=== PATIENT | male | born 1940 | race Caucasian/White ===

== ENCOUNTER 2016-10-16 10:18 | Day surgery (SDC) | payer MEDICARE ==
[2016-10-12 14:15] VITALS: BMI 45.1
[~2016-10-16 10:18] MED LIST: ceFAZolin 1,000 MG in SODIUM CHLORIDE 0.9% IRRIGATIO 250 ML IRRIGATION ONE; ceFAZolin 2 GM in SODIUM CHLORIDE 0.9% 100 ML IVPB ONE
[2016-10-16] MEDS: SODIUM CHLORIDE 0.9% 1,000 ML IV SCH (10:56)
[2016-10-16 10:59] LABS: Glucose,Whole Blood 128 mg/dL (75-99)
[2016-10-16 11:06] LABS: Basophils # (A) 0.1 k/uL (0-0.2); Basophils % (A) 1 %; CH 33.7; CHCM 35.1; Eosinophils # (A) 0.1 k/uL (0-0.7); Eosinophils % (A) 1 %; HDW 2.65; HGB 15.4 gm/dL (13.0-17.5); Luc # (Auto) 0.16; Luc % (Auto) 2; Lymphocytes # (A) 1.6 k/uL (1.0-4.8); Lymphocytes % (A) 17 %; MCH 32.2 pg (25.0-35.0); MCHC 33.4 g/dL (31.0-37.0); MCV 96.5 fL (80.0-100.0); Mean Platelet Volume 7.5; Monocytes # (A) 0.6 k/uL (0-1.0); Monocytes % (A) 6 %; Neutrophils # (A) 6.7 k/uL (1.3-7.7); Neutrophils % (A) 73 %; RBC 4.77 m/uL (4.30-5.90); RDW 12.4 % (11.5-15.5); WBC 9.2 k/uL (3.8-10.6); WBC (Perox) 9.29
[2016-10-16 11:15] LABS: Anion Gap 11 mmol/L; Blood Urea Nitrogen 13 mg/dL (9-20); Calcium 9.5 mg/dL (8.4-10.2); Carbon Dioxide 27 mmol/L (22-30); Chloride 104 mmol/L (98-107); Glucose 146 mg/dL (74-99); Non-African American GFR(MDRD) >60 (>60 ml/min/1.73 sqM); Potassium 4.3 mmol/L (3.5-5.1); Sodium 142 mmol/L (137-145)
[2016-10-16] MEDS ORDERED: IODIXANOL 270 MG/ML 50 ML ML IV ONE ×2 (12:26→12:30)
[2016-10-16] MEDS ORDERED: MIDAZOLAM 2 MG/2 ML VIAL IVP ONE ×2 (12:40→16:22)
[2016-10-16] MEDS ORDERED: fentaNYL (PF) 50 MCG/ML 2 ML AMP IV ONE (12:40)
[2016-10-16] MEDS ORDERED: LIDOCAINE 1% INJ 10MG/ML (20 ML MDV) SQ ONE ×2 (12:43→17:09)
[2016-10-16] MEDS ORDERED: ACETAMINOPHEN TAB 325 MG TAB PO PRN (13:39)
[2016-10-16] MEDS ORDERED: HYDROcodone/APAP 5-325MG 1 EACH TAB PO PRN (13:39)
[2016-10-16] MEDS ORDERED: FUROSEMIDE 10 MG TAB PO PRN (13:40)
--- NOTE | 2016-10-16 13:52 | P.PCN ---
Date of Procedure: 10/16/16 Preoperative Diagnosis: Battery depletion and atrial lead malfunction Postoperative Diagnosis: The same Procedure(s) Performed: Axillary venography, insertion of the new atrial lead, capping of the old atrial lead and generator change Description of Procedure: HISTORY: This is a 76-year-old gentleman with history of permanent pacemaker implantation which was dual-chamber pacemaker which was done in [place]. However on recent evaluation we found that atrial lead was not functioning. His battery also has reached ANDREW. Patient is advised to have revision of the atrial lead and battery replacement. CONSENT:I have discussed the risks, benefits and alternative therapies for the above-mentioned procedure and for both sedation/analgesia as well as necessary blood product administration, if indicated, as they pertain to this patient. The patient has indicated understanding and acceptance of the risks and procedures discussed. PROCEDURE: Patient was brought to the lab in a fasting state. Patient was prepped and draped in the usual fashion. Patient was given IV sedation with fentanyl and Versed. The skin below the left clavicle was infiltrated with lidocaine. An incision was made parallel to deltopectoral groove parallel to the old incision and was deepened until old generator was exposed. The generator was pulled out of the pocket.. Axillary venography was performed to delineate the course of the axillary vein. 1 venous sticks were performed into extrathoracic portion of the axillary vein and one sheath sheaths were advanced over the guidewires and left in subclavian vein. The atrial lead was advanced and was placed in the right atrium near the appendage. The lead was screwed in. Satisfactory threshold was obtained. The new atrial lead is manufactured by [employer]. Model number is 4136 and the serial number is [id number]. The old lead is manufactured by [employer] and the serial number is [id number]. The existing ventricular lead is manufactured by [employer] and the serial number is [id number]. The ventricular lead and the new atrial lead was connected to the new pulse generator manufactured by [employer]. Model number is L101 and the serial number is [id number]. The old atrial lead is capped. THRESHOLDS: ATRIUM: The minimal patient threshold was 0.9 V at pulse width of 0.5 ms. Impedance is 506 ohms. P-wave is 4.2 mV VENTRICLE : The minimal patient threshold is 1.1 V at pulse width of 0.5 ms. The impedance was 546 ohms. The R waves or not measured The leads and pulse generator remained in the pocket after it was washed with antibiotics. Pocket was closed in the usual fashion. The fascia was closed with 2-0 Prolene ,the subcutaneous tissue was closed with 3-0 Prolene and the skin was closed with 4-0 Prolene. PROGRAMMING: MODE: DDDR mode RATE: 60-120 OUTPUT: Atrium 3.5 V ventricle: 3.5 V FINAL IMPRESSION: #1. Axillary venography #2. Insertion of the new atrial lead #3. Capping of the old atrial lead #4. Generator change COMPLICATIONS: None PLAN: Patient will monitor for 24 hours. He patient remains stable he'll be discharged home tomorrow. He'll continue prophylactic antibiotics.
[2016-10-16 15:45] LABS: Glucose,Whole Blood 134 mg/dL (75-99)
[2016-10-16] MEDS ORDERED: IV FLUID CONTINUATION 600 ML IV ONE (16:15)
[2016-10-16] MEDS ORDERED: LIDOCAINE 2% INJ 20 MG/ML SQ ONE (16:22)
[2016-10-16] MEDS ORDERED: ceFAZolin 2 GM in SODIUM CHLORIDE 0.9% 100 ML IVPB STA (16:32)
[2016-10-16] MEDS ORDERED: ceFAZolin 1,000 MG in SODIUM CHLORIDE 0.9% IRRIGATIO 250 ML IRRIGATION ONE (16:32)
--- NOTE | 2016-10-16 18:31 | P.PCN ---
Date of Procedure: 10/16/16 Preoperative Diagnosis: Ventricular lead small malfunction with intermittent capture and fluoroscopy showed dislodgment of the ventricular lead Postoperative Diagnosis: The same Procedure(s) Performed: Exploration of the pocket and freeing of the ventricular lead followed by extraction. Insertion of the new ventricular lead. Temporary pacemaker implantation Description of Procedure: HISTORY: This is 76-year-old gentleman came to have a generator change because of depletion. Patient also had a small function atrial lead. Patient had a new atrial lead insertion today. Patient had excellent thresholds before leaving the organic lab worker. On the floor patient started having intermittent non- capture of the ventricular lead. Patient was brought to the organic lab worker and was noted to have dislodgment of the ventricular lead. Patient is advised to either repositioning or extraction of the lead with intention of possible reinsertion of new lead in the ventricle. Patient also had a temporary pacemaker because of intermittent capture noted with the existing ventricular lead. CONSENT:I have discussed the risks, benefits and alternative therapies for the above-mentioned procedure and for both sedation/analgesia as well as necessary blood product administration, if indicated, as they pertain to this patient. The patient has indicated understanding and acceptance of the risks and procedures discussed. PROCEDURE: Patient was brought to the lab in a fasting state. Patient was prepped and draped in the usual fashion. Patient was given IV sedation with fentanyl and Versed. The skin in the right groin is infiltrated with lidocaine. Right femoral vein was vein was entered and a 6-Polish sheath is left in place. A 5-Polish balloon tipped temporary pacemaker was advanced and was placed in the right ventricular apical region. Satisfactory thresholds were obtained. The pacemaker was set at rate of 40 and an output of 3. The skin over the existing pulse generator was infiltrated with lidocaine. An incision was made parallel to old incision and was deepened until the old generator is exposed. The leads were disconnected from the generator. The ventricular lead is freed from all the adhesions and capsule. Attempt at unscrewing the lead were unsuccessful. The lead was slowly pulled out of the pocket and extracted. Axillary vein was entered using Seldinger technique and a 6- Polish sheath was advanced subclavian vein. A new ventricular lead manufactured by [employer] model #7742 and serial #[id number] was advanced into the superior vena cava and was advanced into the right ventricle apical region. Satisfactory position was obtained. Thresholds were satisfactory. The lead was screwed in. LEADS: ATRIAL: The new atrial lead is manufactured by [employer] model number is 4136 and serial number is [id number] VENTRICULAR: The new ventricular lead is manufactured by [employer] model number is 7742 and serial number is [id number] The new device: THIS IS MANUFACTURED BY [employer]. MODEL NUMBER IS [id number] AND THE SERIAL NUMBER IS [id number] The ventricular lead is maneuvered l with help of a straight and curved stylets into the left ventricle apical region. Satisfactory position was obtained and threshold measurements were made. The atrial lead was then maneuvered into the right atrial appendage. And thresholds were obtained. THRESHOLDS: ATRIUM: The minimal patient threshold is 0.5 at pulse width of 0.5 ms. Impedance was 6 and 56 ohms . P-wave: 2 VENTRICLE the minimal patient threshold in the ventricle is 0.5 V at pulse width of 0.5 ms the impedance was 8 and 32 ohms R-wave: Paced The leads and pulse generator remained in the pocket after it was washed with antibiotics. Pocket was closed in the usual fashion. The fascia was closed with 2-0 Prolene ,the subcutaneous tissue was closed with 3-0 Prolene and the skin was closed with 4-0 Prolene. PROGRAMMING: MODE: DDDR RATE: 60-120 OUTPUT: Atrium : 3.5 ventricle: 3.5 FINAL IMPRESSION: #1 . Temporary pacemaker insertion #2 . exploration of the pocket and extraction of the old ventricular lead #3 insertion of new ventricular lead COMPLICATIONS: none PLAN: Monitoring on the telemetry unit. Continue prophylactic antibiotic . chest x-ray in the morning. Possible discharge within next 24-48 hours.
[2016-10-16 20:43] LABS: Glucose,Whole Blood 146 mg/dL (75-99)
[2016-10-16] MEDS ORDERED: ATORVASTATIN 10 MG TAB PO SCH (21:00)
[2016-10-16] MEDS: ceFAZolin 2 GM in SODIUM CHLORIDE 0.9% 100 ML IVPB SCH (22:04)
[2016-10-17] MEDS: SODIUM CHLORIDE 0.9% 1,000 ML IV SCH (03:30)
[2016-10-17 03:40] LABS: Hemoglobin A1C 6.5 % (4.2-6.1)
[2016-10-17] MEDS: ceFAZolin 2 GM in SODIUM CHLORIDE 0.9% 100 ML IVPB SCH ×3 (04:01→15:54)
[2016-10-17 06:56] LABS: Glucose,Whole Blood 118 mg/dL (75-99)
[2016-10-17 08:22] VITALS: RESP 18
--- NOTE | 2016-10-17 08:45 | XR ---
EXAMINATION TYPE: XR chest 2V DATE OF EXAM: 10/17/2016 6:33 AM COMPARISON: NONE INDICATION: Lead placement check TECHNIQUE: Frontal and lateral views of the chest are obtained. FINDINGS: The heart size is normal. The pulmonary vasculature is normal. The lungs are clear. Electronic device overlies left chest. A third lead is now present IMPRESSION: 1. No pneumothorax post electronic device adjustment.
--- NOTE | 2016-10-17 08:50 | P.DS ---
Providers Date of admission: 10/16/2016 Attending physician: Maria R Oates Primary care physician: Bennett Giordano [facility] Course: This patient was brought in for generator change and insertion of new atrial pacemaker lead. The existing lead was not functioning right. Patient had Atrial lead placement without incident and also generator change in the morning. After several hours on the telemetry unit, patient was noted to have non-capture of ventricular lead intermittently resulting in presyncopal episode. Patient was subsequently taken to the prosthetics lab technician. Fluoroscopy showed dislodgment of the ventricular lead. A temporary pacemaker was inserted from the right groin. The existing ventricular lead was freed and was extracted. Ventricular lead was inserted. Excellent thresholds were obtained. Patient has remained stable since then. His thresholds are excellent today. Chest x- ray showed proper position of the leads. Patient is advised to stay in the hospital for another 24 hours. Patient however wants to go home. We will continue antibiotics. We will increase activity as tolerated. If he remains stable by evening, patient will be discharged home. Patient is instructed on not lifting left arm above the shoulder levels and not doing any heavy lifting pushing or pulling. He'll keep the area dry for the next one week. Follow-up in the office in one week. Plan - Discharge Summary New Discharge Prescriptions: Cephalexin [Keflex] 500 mg PO Q8HR #15 cap Discharge Medication List Aspirin EC [Ecotrin Low Dose] 81 mg PO DIRECTED 03/29/16 [History] Furosemide [Lasix] 10 mg PO DAILY PRN 03/29/16 [History] Simvastatin [Zocor] 20 mg PO HS 03/29/16 [History] Multivitamins, Thera [Multivitamin] 1 tab PO DAILY 10/12/16 [History] Vitamin B Complex 1 each PO DAILY 10/12/16 [History] Cephalexin [Keflex] 500 mg PO Q8HR #15 cap 10/17/16 [Rx] Discharge Disposition: HOME SELF-CARE
[2016-10-17] MEDS ORDERED: B COMPLEX-VIT C-VIT E-ZINC 1 EACH TAB PO SCH (09:00)
[2016-10-17 11:13] LABS: Glucose,Whole Blood 142 mg/dL (75-99)
[2016-10-17] MEDS ORDERED: MULTIVITAMINS, THERA 1 EACH TAB PO SCH (12:00)
[2016-10-17 12:23] VITALS: TEMP 98.4
[2016-10-17 15:34] VITALS: BP 149/68; PULSE 69
[2016-10-17 17:34] LABS: Glucose,Whole Blood 117 mg/dL (75-99)
== END 2016-10-17 18:12 | disposition home or self-care (01) ==
LOC: CATHEP 10:18 → 3OBS 13:35 → CATHEP 10-17 18:12
PROVIDERS: ATTEND Internal Medicine Cardiovascular Disease
DX: Z45.010 Encounter for checking and testing of cardiac pacemaker pulse generator [battery] (principal); T82.118A Breakdown (mechanical) of other cardiac electronic device, initial encounter; I10 Essential (primary) hypertension; E78.00 Pure hypercholesterolemia, unspecified; E78.5 Hyperlipidemia, unspecified; I44.7 Left bundle-branch block, unspecified; I44.1 Atrioventricular block, second degree; I25.10 Atherosclerotic heart disease of native coronary artery without angina pectoris; Z79.82 Long term (current) use of aspirin; Z79.899 Other long term (current) drug therapy
CPT/HCPCS: 33234; 33233; 80048; 83036; 85025; 71020; 33210; 33216; 33206; C1769 ×3; C1898 ×2; C1785; J2001 ×2; J2250; Q9966; J0690 ×3; J3010

== ENCOUNTER → 2021-07-11 | Outpatient (CLI) | payer MEDICARE ==
[2021-07-11 12:59] LABS: African American GFR (CKD) >90 (>60 ml/min/1.73 sqM); Blood Urea Nitrogen 15 mg/dL (9-20); Non-African American GFR(CKD) 85 (>60 ml/min/1.73 sqM)
--- NOTE | 2021-07-11 15:50 | CT ---
EXAMINATION TYPE: CT abdomen pelvis w con DATE OF EXAM: 07/11/2021 COMPARISON: None INDICATION: LUQ pain, constipation, bloating DLP: 4037.8 mGycm, Automated exposure control for dose reduction was used. CONTRAST: 100 mL of Isovue 300. Study performed with Oral Contrast TECHNIQUE: Axial images were obtained from above the diaphragm to the pubic rami in the axial plane a t 5 mm thick sections. Reconstructed images are reviewed on the computer in the coronal plane. FINDINGS: Limited CT sections are obtained the lung bases. The lung bases are clear. CT ABDOMEN: There is an anterior abdominal wall hernia containing mesenteric fat in the periumbilical region. Liver: There appears to be a cyst in the anterior right lobe liver. Spleen: Normal Pancreas: Atrophic Adrenal glands: The adrenal glands are normal. Gallbladder: Normal Kidneys: No masses are evident. No hydronephrosis is present. No cysts are present. No renal stone s are identified. Aorta: Mild Vascular calcification is within the aorta. Inferior vena cava: Normal. CT PELVIS: Loops of bowel within the abdomen and pelvis are normal. There are loops of bowel which are incom pletely distended or lack oral contrast limiting their evaluation. Appendix: Normal as visualized. Urinary bladder: Normal. Genitourinary structures: Prostate is prominent and contains some calcification Osseous structures: No suspicious lytic or sclerotic lesions. IMPRESSIONS: 1. Anterior abdominal wall hernia containing mesenteric fat.
== END | disposition home or self-care (01) ==
LOC: RADCTMAIN 11:52
PROVIDERS: ATTEND Family Medicine
DX: K43.9 Ventral hernia without obstruction or gangrene (principal)
CPT/HCPCS: 82565; 84520; 74177; 36415; Q9967

== ENCOUNTER → 2021-12-26 | Outpatient (CLI) | payer MEDICARE ==
[2021-12-26 22:32] LABS: ALT 15 U/L (10-49); AST 18 U/L (14-35); Chol/HDL Ratio 3.07 Ratio; LDL Cholesterol,Calculated 81.9 mg/dL (0.0-131.0); VLDL Calculation 17.24 mg/dL (5.00-40.00)
== END | disposition home or self-care (01) ==
LOC: LABWHC1 14:14
PROVIDERS: ATTEND Internal Medicine Cardiovascular Disease
DX: E78.5 Hyperlipidemia, unspecified (principal)
CPT/HCPCS: 36415; 80061; 84450; 84460

== ENCOUNTER → 2022-01-31 | Outpatient (CLI) | payer MEDICARE ==
[2022-01-31 22:55] LABS: Basophils # (A) 0.04 X 10*3/uL (0.00-0.10); Basophils % (A) 0.5 %; Eosinophils # (A) 0.13 X 10*3/uL (0.04-0.35); Eosinophils % (A) 1.8 %; HCT 43.3 % (39.6-50.0); HGB 14.2 g/dL (13.0-17.0); Immature Grans, Automated 0.3 %; Lymphocytes # (A) 1.71 X 10*3/uL (0.90-5.00); Lymphocytes % (A) 23.1 %; MCH 32.3 pg (27.0-32.0); MCHC 32.8 g/dL (32.0-37.0); MCV 98.6 fL (80.0-97.0); Monocytes # (A) 0.73 X 10*3/uL (0.20-1.00); Monocytes % (A) 9.9 %; NRBC Per 100 WBC 0 /100 WBCS (0.0-0.0); Neutrophils # (A) 4.77 X 10*3/uL (1.80-7.70); Neutrophils % (A) 64.4 %; Platelet Count 205 X 10*3/uL (140-440); RBC 4.39 X 10*6/uL (4.40-5.60); RDW 12.6 % (11.5-14.5)
[2022-01-31 23:15] LABS: ALT 17 U/L (10-49); AST 21 U/L (14-35); African American GFR (CKD) 95.6 (60.0-200.0); Albumin 4.1 g/dL (3.8-4.9); Albumin/Globulin Ratio 1.79 (1.60-3.17); Alkaline Phosphatase 75 U/L (41-126); BUN/Creat Ratio 25.15 Ratio (12.00-20.00); Blood Urea Nitrogen 20.9 mg/dL (9.0-27.0); Calcium 9.2 mg/dL (8.7-10.3); Chloride 106 mmol/L (96-109); Globulin 2.3 g/dL (1.6-3.3); Glucose 124 mg/dL (70-110); Non-African American GFR(CKD) 82.5 (60.0-200.0); Potassium 4.5 mmol/L (3.5-5.5); Sodium 141 mmol/L (135-145); Total Protein 6.3 g/dL (6.2-8.2)
[2022-01-31 23:16] LABS: Chol/HDL Ratio 3.01 Ratio; LDL Cholesterol,Calculated 95.6 mg/dL (0.0-131.0); VLDL Calculation 10.64 mg/dL (5.00-40.00)
== END | disposition home or self-care (01) ==
LOC: LABWHC1 16:03
PROVIDERS: ATTEND Family Medicine
DX: Z12.5 Encounter for screening for malignant neoplasm of prostate (principal); E78.2 Mixed hyperlipidemia; E55.9 Vitamin D deficiency, unspecified; R07.89 Other chest pain; E53.9 Vitamin B deficiency, unspecified; E11.9 Type 2 diabetes mellitus without complications
CPT/HCPCS: 36415; 80053; 80061; 82306; 84153; 84443; 85025

== ENCOUNTER → 2022-09-21 | Outpatient (CLI) | payer MEDICARE ==
--- NOTE | 2022-09-22 04:12 | US ---
EXAMINATION TYPE: US carotid duplex BILAT DATE OF EXAM: 09/21/2022 COMPARISON: NONE CLINICAL HISTORY: R29.818 other symptoms and signs involving nervous system. TECHNIQUE: Carotid duplex ultrasound examination. Indirect Doppler criteria was utilized. FINDINGS: EXAM MEASUREMENTS: RIGHT: Peak Systolic Velocity (PSV) cm/sec ----- Right CCA: 60.6 ----- Right ICA: 90.6 ----- Right ECA: 64.8 ICA/CCA ratio: 1.5 RIGHT: End Diastole cm/sec ----- Right CCA: 11.4 ----- Right ICA: 24.0 ----- Right ECA: 0.0 LEFT: Peak Systolic Velocity (PSV) cm/sec ----- Left CCA: 62.4 ----- Left ICA: 97.8 ----- Left ECA: 62.4 ICA/CCA ratio: 1.57 LEFT: End Diastole cm/sec ----- Left CCA: 12.0 ----- Left ICA: 26.4 ----- Left ECA: 62.4 VERTEBRALS (direction of flow): Right Vertebral: Antegrade Left Vertebral: Antegrade Rhythm: Normal [employer] NOTES: Mild plaque bilateral bifurcations. no evidence of significant stenosis IMPRESSION: No hemodynamically significant stenosis in either internal carotid artery. Criteria for Assigning % of Stenosis / Diameter reduction (Estimation based on the indirect measurements of the internal carotid artery velocities (ICA PSV). 1. Normal (no stenosis)=ICA PSV < 125 cm/s: ratio < 2.0: ICA EDV<40 cm/s. 2. Less than 50% stenosis=ICA PSV < 125 cm/s: ratio < 2.0: ICA EDV<40 cm/s. 3. 50 to 69% stenosis=ICA PSV of 125 to 230 cm/s: ration 2.0 ? 4.0: ICA EDV 40-100 cm/s. 4. Greater than 70% stenosis to near occlusion= ICA PSV > 230 cm/s: ratio > 4.0: ICA EDV > 100 cm/s. 5. Near occlusion= ICA PSV velocities may be low or undetectable: variable ratio and ICA EDV. 6. Total occlusion=unable to detect flow.
--- NOTE | 2022-09-22 04:15 | US ---
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 palpable right submandibular area GLAND SIZE: Right Lobe: 4.3 x 1.5 x 1.8 cm Overall Parenchyma: homogenous Left Lobe: 3.8 x 1.6 x 1.4 cm Overall Parenchyma: homogeneous Isthmus Thickness: 0.4 cm NODULES RIGHT: # of nodules measured on right: 1 1. 0.8 X 0.8 x 0.7 cm, lower , mixed cystic and solid, isoechoic nodule, which is wider than tall, with ill-defined margins, with echogenic foci. Prior size: no prior LEFT: # of nodules measured on left: 0 ISTHMUS: # of nodules measured in the isthmus: 0 Bilateral neck scanned, lymph nodes noted Within patient's area of concern, right submandibular area, complex hypoechoic area = 1.4 x 1.7cm Homogeneous somewhat small size with 8mm mixed right thyroid nodule. At palpable there are is more suspicious vascular hypoechoic lobulated solid mass or nodule IMPRESSION: The most suspicious lesion right submandibular level worrisome for neoplasm. Advise ENT r eferral and/or ultrasound-guided FNA. 2017 ACR TI-RADS LEVEL: TR-RADS 4 - Moderately Suspicious: Follow if > 1 cm, FNA if > 1.5 cm *Highest TI-RADS level nodule reported
== END | disposition home or self-care (01) ==
LOC: RADUSWWP 16:25
PROVIDERS: ATTEND Family Medicine
DX: E04.2 Nontoxic multinodular goiter (principal); R29.818 Other symptoms and signs involving the nervous system
CPT/HCPCS: 76536; 93880

== ENCOUNTER → 2022-10-06 | Outpatient (CLI) | payer MEDICARE ==
--- NOTE | 2022-10-06 16:12 | CT ---
EXAMINATION TYPE: CT urogram wo/w con DATE OF EXAM: 10/06/2022 COMPARISON: 07/11/2021 INDICATION: hematuria x 3 months DLP: 4062 mGycm, Automated exposure control for dose reduction was used. CONTRAST: 100 mL of Isovue 300. Study performed without Oral Contrast TECHNIQUE: Axial images were obtained from above the diaphragm to the pubic rami in the axial plane a t 5 mm thick sections. Reconstructed images are reviewed on the computer in the coronal plane. FINDINGS: Limited CT sections are obtained the lung bases. The lung bases are clear. CT ABDOMEN: Liver: Multiple hepatic cysts are present. Spleen: Normal Pancreas: Normal Adrenal glands: The adrenal glands are normal. Gallbladder: Normal Kidneys: No masses are evident. No hydronephrosis is present. Tiny cortical renal cysts on the ante rior mid right kidney. Delayed images were obtained through the kidneys, which remain unremarkable. 3-D reconstructed images performed with the urogram on a separate computer by the technologist. Aorta: Vascular calcification is within the aorta. Inferior vena cava: Normal. CT PELVIS: Loops of bowel within the abdomen and pelvis are normal. There are loops of bowel which are incom pletely distended or lack oral contrast limiting their evaluation. Appendix: Normal as visualized. Urinary bladder: There is a 1.3 cm urinary bladder calcification present. Genitourinary structures: Prostate appears mildly prominent with inferior impression on the urinary b ladder. Osseous structures: No suspicious lytic or sclerotic lesions. IMPRESSIONS: 1. There is a 1.3 cm urinary bladder calcification present. No suspicious abnormality otherwise appa rent to account for hematuria. 2. Some prostate hypertrophy may have inferior impression on the urinary bladder. Consider additional evaluation of the prostate. Neoplasm should be considered
== END | disposition home or self-care (01) ==
LOC: RADCTMAIN 13:47
PROVIDERS: ATTEND Family Medicine
DX: N40.0 Benign prostatic hyperplasia without lower urinary tract symptoms (principal); N32.89 Other specified disorders of bladder; R31.9 Hematuria, unspecified; R10.84 Generalized abdominal pain
CPT/HCPCS: 82565; 84520; 74178; 36415; 74400; Q9967

== ENCOUNTER 2023-05-01 13:09 | Day surgery (SDC) | payer MEDICARE ==
[2023-05-01 13:38] VITALS: PULSE 60; TEMP 97.7
[2023-05-01 14:24] VITALS: RESP 16
[2023-05-01 14:34] VITALS: BP 135/83
--- NOTE | 2023-05-01 14:54 | US ---
ULTRASOUND GUIDED CORE BIOPSY RIGHT SUBMANDIBULAR MASS: CLINICAL HISTORY: Right submandibular mass FINDINGS: The procedure was explained to the patient. The risks, complications, benefits and alternatives were discussed and any questions were answered. Informed consent was obtained. Patient was placed supin e on the ultrasound table and prepped and draped in the usual sterile fashion. Utilizing a 18-gauge core biopsy needle, two passes were made into the requested right submandibular mass. Patient was stable throughout the procedure. Pathology is pending. All elements of maximal barrier technique were utilized. IMPRESSION: 1. Successful ultrasound guided core biopsy right submandibular mass.
== END 2023-05-01 14:40 | disposition home or self-care (01) ==
LOC: RADPROMAIN 13:09
PROVIDERS: ATTEND Otolaryngology
DX: R22.1 Localized swelling, mass and lump, neck (principal)
CPT/HCPCS: 21550; 88305

== ENCOUNTER → 2024-12-03 | Outpatient (CLI) | payer MEDICARE ==
--- NOTE | 2024-12-03 14:30 | US ---
EXAMINATION TYPE: US kidneys/renal and bladder DATE OF EXAM: 12/03/2024 COMPARISON: NONE CLINICAL INDICATION: Male, 84 years old with history of N21.0 CALCULUS IN BLADDER; pain TECHNIQUE: Grayscale imaging of the bilateral kidneys and urinary bladder: FINDINGS: EXAM MEASUREMENTS: Right Kidney: 12.3 x 4.7 x 3.7 cm Left Kidney: 11.5 x 4.0 x 4.3 cm Right Kidney: No hydronephrosis or masses seen Left Kidney: No hydronephrosis or masses seen Bladder: not full There is no evidence for hydronephrosis at this point in time. No nephrolithiasis is seen. No francheska s are identified. The urinary bladder is nondistended no calculus identified. IMPRESSION: 1. Calyces in the bladder are not definitively visualized likely due to nondistention. 2. No evidence for obstructive uropathy or acute process. [facility], , 12/03/2024 2:27 PM
== END | disposition home or self-care (01) ==
LOC: RADUSWWP 13:35
PROVIDERS: ATTEND Urology
DX: N21.0 Calculus in bladder (principal)
CPT/HCPCS: 76770

== ENCOUNTER → 2024-12-26 | Outpatient (CLI) | payer MEDICARE ==
[2024-12-26 14:57] LABS: African American GFR (CKD) 87 (>60 ml/min/1.73 sqM); Blood Urea Nitrogen 21 mg/dL (9-20); Non-African American GFR(CKD) 75 (>60 ml/min/1.73 sqM)
--- NOTE | 2024-12-26 16:12 | CT ---
EXAMINATION TYPE: CT abdomen pelvis wo/w con DATE OF EXAM: 12/26/2024 COMPARISON: Prior CT urogram October 06, 2022 CLINICAL INDICATION: Male, 84 years old with history of R10.84 GENERALIZED ABDOMINAL PAIN, left sided abdominal pain, TECHNIQUE: CT scan of the abdomen and pelvis is performed without and with IV Contrast, patient injected with 10 0 ml mL of Isovue 300., (none if empty) Oral contrast used: with Oral Contrast (none if empty) CT DLP: 2797 mGycm, Automated exposure control for dose reduction was used. FINDINGS: LUNG BASES: Right-sided pacemaker leads are partially imaged. Stable mild cardiomegaly. Persistent mo derate to severe biatrial dilatation. LIVER/GB: Several small thin-walled cysts throughout the left hepatic liver are redemonstrated. PANCREAS: No significant abnormality is seen. SPLEEN: No significant abnormality is seen. ADRENALS: No significant abnormality is seen. KIDNEYS: Cortical thinning bilaterally. No definitive nephrolithiasis on noncontrast images. Probable 1.0 cm simple appearing exophytic cyst posteriorly from the left kidney is redemonstrated series 6 i mage 56. Symmetric cortical medullary uptake and excretion without hydronephrosis. BOWEL: Without contrast reaches level of splenic flexure. No abnormal small or large bowel dilatation is seen. Distal colonic diverticula. No CT evidence for acute diverticulitis. Stable ovoid fat densi ty 1.7 cm lesion in the distal duodenum series 3 image 43 likely reflects lipoma. PROSTATE/SEMINAL VESICLES: Enlarged prostate consistent with BPH is redemonstrated. LYMPH NODES: No greater than 1cm abdominal or pelvic lymph nodes are appreciated. OSSEOUS STRUCTURES: Multilevel disc space narrowing in the lumbar spine. Multilevel bridging osteophy fatmata in the thoracic spine. OTHER: Moderate-sized fat-containing umbilical hernia. IMPRESSION: No significant new/acute finding is seen to account for patient's clinical symptoms. [facility], , 12/26/2024 4:10 PM
== END | disposition home or self-care (01) ==
LOC: RADCTMAIN 13:48
PROVIDERS: ATTEND Urology
DX: N21.0 Calculus in bladder (principal); K42.9 Umbilical hernia without obstruction or gangrene; N40.0 Benign prostatic hyperplasia without lower urinary tract symptoms; K57.30 Diverticulosis of large intestine without perforation or abscess without bleeding
CPT/HCPCS: 82565; 84520; 74178; 36415; Q9967